=== PATIENT | female | born 1990 | race Native Hawaiian/Other Pacific Islander ===

== ENCOUNTER 2016-12-29 23:29 | Emergency (ER) | payer OTHER ==
--- NOTE | 2016-12-30 02:19 | C.PDOC ---
History Of Present Illness A 26 y/o female c/o injury to left ankle and foot s/p fall during causing her twisting injury of her left foot [employer]. Pt denies head injury, numbness, weakness , or any other complaints. Time Seen by Provider: 12/30/16 00:12 Chief Complaint (Nursing): Lower Extremity Problem/Injury History Per: Patient History/Exam Limitations: no limitations Onset/Duration Of Symptoms: Hrs Current Symptoms Are (Timing): Still Present Severity: Mild Recent travel outside of the [place]: No Additional History Per: Patient - Ankle/Foot Description Of Injury: Twisted Currently Unable To: Bear Weight Past Medical History Reviewed: Historical Data, Nursing Documentation, Vital Signs Vital Signs: Last Vital Signs Temp 97.6 F 12/30/16 03:21 Pulse 67 12/30/16 03:21 Resp 16 12/30/16 03:21 BP 99/69 L 12/30/16 03:21 Pulse Ox 98 12/30/16 03:21 Family History: States: Unknown Family Hx - Social History Hx Alcohol Use: No Hx Substance Use: No - Immunization History Hx Tetanus Toxoid Vaccination: No Hx Influenza Vaccination: No Hx Pneumococcal Vaccination: No Review Of Systems Constitutional: Negative for: Other (Head injury) Musculoskeletal: Positive for: Foot Pain (Left ankle and fott) Neurological: Negative for: Weakness, Numbness Physical Exam - Physical Exam Appears: Non-toxic, No Acute Distress Skin: Warm, Dry Head: Atraumatic, Normacephalic Eye(s): bilateral: Normal Inspection, PERRL, EOMI Extremity: No Normal ROM (ROM of the left fott and ankle limited due to pain.), Tenderness (Tenderness to the medial aspect of the left ankle and mid foot), No Pedal Edema, No Calf Tenderness, Capillary Refill (<2secs), No Deformity, Swelling (Swelling to the dorsal aspect of the left foot with tenderness), Other (Toes normal) Extremity: Bilateral: Atraumatic, Normal Color And Temperature Pulses: Left Dorsalis Pedis: Normal, Right Dorsalis Pedis: Normal Neurological/Psych: Oriented x3, Normal Motor, Normal Sensation, Other (No focal deficit) Gait: Unable To Assess (due to pain) ED Course And Treatment O2 Sat by Pulse Oximetry: 100 (RA) Pulse Ox Interpretation: Normal - Other Rad Left foot X-Ray: Interpreted by Me, Viewed By Me Interpretation: Fx of base of left 2nd and 3rd MTPS Progress Note: Impression: 26 y/o female c/o injury to the left ankle and foot after mechanically falling today. Plans: Motrin, XRAY of left ankle and foot, reassess. XRAY of the left ankle no fracture or dislocation. XRAY of the left foot fracture of the base of the left 2nd and 3rd MTP. Posterior splint placed ny CP and crutches given to pt. Reassessment Condition: Improved Orthopedic Time Performed: 02:03 Time Out: Side verified, Site verified, Patient ID confirmed Procedure: Splint Type: Short, Posterior Location: Left, Foot Consent obtained: Verbal Performed by: Mid-level Provider (done by CP and checked by me) Diagnosis: Fracture (Base of the left 2nd and 3rd MTP) Type: Closed, Non-displaced Location: Left Other:: Left foot and ankle Bone: 2nd, 3rd Joints: MTP Joint Other:: base of the left 2nd and 3rd MTP Capillary refill: Normal Distal Sensation: Normal Distal Motor Function: Normal Capillary Refill: Normal Compartment: Normal Distal Sensation: Normal Distal Motor Function: Normal Patient tolerated procedure: Well Disposition Counseled Patient/Family Regarding: Diagnosis, Need For Followup, Rx Given - Disposition Referrals: Podiatry Clinic [Outside] Disposition: HOME/ ROUTINE Disposition Time: 02:39 Condition: STABLE Additional Instructions: Leg elevation Apply ICE to foot Use crutches for non weight bearing Follow up with PMD for podiatry referral Return to ER if worse Prescriptions: Ibuprofen [Motrin] 600 mg PO Q6H #30 tab Instructions: Foot Fracture in Adults (ED) - Clinical Impression Clinical Impression: Foot fracture, left - Scribe Statement The provider has reviewed the documentation as recorded by the Perlaibamanda flores All medical record entries made by the Perlaibamanda were at my direction and personally dictated by me. I have reviewed the chart and agree that the record accurately reflects my personal performance of the history, physical exam, medical decision making, and the department course for this patient. I have also personally directed, reviewed, and agree with the discharge instructions and disposition.
[2016-12-30 03:21] VITALS: BP 99/69; PULSE 67; RESP 16; TEMP 97.6
--- NOTE | 2016-12-30 09:24 | RAD ---
PROCEDURE: Left ankle dated 12/30/2016 HISTORY: r/o fx COMPARISON: Correlation made with concurrent radiographs of the left foot. FINDINGS: BONES: Fractures traversing the proximal margins of the 2nd, 3rd and possibly cuboid are less well seen on this study as compared to dedicated radiographs of the left foot. Fracture traversing the distal 3rd 4th and 5th metatarsals are not visible on this exam. JOINTS: Normal. No osteoarthritis. Ankle mortise maintained. Talar dome intact SOFT TISSUES: Normal. OTHER FINDINGS: None. IMPRESSION: Fractures traversing the proximal margins of the 2nd, 3rd and possibly cuboid are less well seen on this study as compared to dedicated radiographs of the left foot. Fracture traversing the distal 3rd 4th and 5th metatarsals are not visible on this exam. . Please refer to radiographs and corresponding report left foot.
--- NOTE | 2016-12-30 10:00 | RAD ---
PROCEDURE: Left Foot Radiographs. HISTORY: r/o fx COMPARISON: None. FINDINGS: BONES: There are acute transverse nondisplaced fractures in the bases of the 2nd and 3rd metatarsals and in the neck of the 2nd, 3rd and 4th metatarsals. JOINTS: Normal. SOFT TISSUES: There is moderate soft tissue swelling in the foot. OTHER FINDINGS: None. IMPRESSION: 1. Acute transverse nondisplaced fractures in the bases of the 2nd and 3rd metatarsals. 2. Acute nondisplaced fractures in the neck of the 2nd, 3rd and 4th metatarsals.
[2016-12-31 03:59] VITALS: O2SAT 100
== END 2016-12-30 03:38 | disposition home or self-care (01) ==
LOC: C.ER 23:29
DX: S92.325A Nondisplaced fracture of second metatarsal bone, left foot, initial encounter for closed fracture (principal); S92.335A Nondisplaced fracture of third metatarsal bone, left foot, initial encounter for closed fracture; V00.131A Fall from skateboard, initial encounter; Y93.51 Activity, roller skating (inline) and skateboarding; Y92.89 Other specified places as the place of occurrence of the external cause